=== PATIENT | female | born 2000 | race Caucasian/White ===

== ENCOUNTER 2022-07-01 03:22 | Emergency (ER) | payer SELFPAY ==
[2022-07-01 03:41] VITALS: BP 110/62; PULSE 89; RESP 16; TEMP 36.7; O2SAT 97; BMI 29.2
[2022-07-01 03:59] LABS: Appearance Urine Cloudy; Color Urine Yellow; Glucose Urine UA Negative (Negative); Leukocyte Esterase Urine Small (1+) (Negative); Nitrite Urine Positive (Negative); UMIC TRIGGER UACC YES; Urine Blood Negative (Negative); Urine Ketones Negative (Negative); Urine Protein Negative (Neg-Trace)
[2022-07-01 04:02] LABS: UPreg QC Valid YES; Urine Pregnancy NEGATIVE (NEGATIVE)
[2022-07-01 04:04] LABS: Bacteria Urine 4+ (None Seen); Hyaline Casts Urine 0-2 /LPF (0-2); RBC Urine 0-2 /HPF (0-2); UACC Culture Trigger YES; WBC Urine 21-50 /HPF (0-5)
--- NOTE | 2022-07-01 06:09 | ED_ITS ---
HPI - Female Genitourinary General Chief complaint: Urogenital-Female Stated complaint: Pain when urinating Time Seen by Provider: 07/01/22 06:01 Source: patient Mode of arrival: ambulatory Limitations: no limitations History of Present Illness HPI Narrative: 22-year-old female presents with urinary frequency, urgency, dysuria. Symptoms started 2 months ago. Symptoms are fairly constant. There is no nausea or vomiting. She denies any fevers or chills. Pain is in the lower pelvic area without any vaginal bleeding or discharge. The pain does not radiate. Patient did have a prescription for an antibiotic which she lost. She is here for a new prescription. Related Data Previous Rx's Medication Instructions Recorded cephalexin 500 mg capsule 500 mg PO BID #14 caps 07/01/22 phenazopyridine 200 mg tablet 200 mg PO TID PRN pain 6 doses #6 07/01/22 (Pyridium) tabs Allergies Allergy/AdvReac Type Severity Reaction Status Date / Time No Known Allergies Allergy Verified 07/01/22 03:49 Review of Systems Review of Systems: CONSTITUTIONAL: Denies weight loss, fever and chills. HEENT: Denies changes in vision and hearing. RESPIRATORY: Denies SOB and cough. CV: Denies palpitations no CP. GI: Denies abdominal pain, nausea, vomiting and diarrhea. : + dysuria and urinary frequency. MSK: Denies myalgia and joint pain. SKIN: Denies rash and pruritus. NEUROLOGICAL: Denies headache and syncope. PSYCHIATRIC: Denies recent changes in mood. Denies anxiety and depression. All other ROS are negative unless in HPI [facility] Social History Social History Advance Directives: No Physical Exam Vital Signs: Vital Signs: Last Vital Signs Temp 98.1 F 07/01/22 03:41 Pulse 89 07/01/22 03:41 Resp 16 07/01/22 03:41 BP 110/62 07/01/22 03:41 Pulse Ox 97 07/01/22 03:41 O2 Del Method 07/01/22 03:41 BMI result Body Mass Index 29.2 GEN: Well developed, no acute distress, alert, oriented HEENT: Normocephalic, atraumatic, normal external ears, nose appears normal, no oropharyngeal edema or exudates Eyes: Normal to appearance Neck: Supple, no lymphadenopathy Respiratory: Talks in complete sentences, no respiratory distress, clear to auscultation bilaterally Cardiovascular: Regular rate and rhythm, no murmurs rubs or gallops Abdomen: Soft, nontender, nondistended, no guarding, no rebound Back: No CVA tenderness Extremities: No clubbing cyanosis or edema Neurologic: No focal neurologic deficits, cranial nerves 2-12 intact, strength is 5/5 bilaterally, gait normal Skin: No rash Course Course Course Narrative: 22-year-old female presents with signs and symptoms consistent with urinary tract infection. She has no CVA tenderness to suggest ascending urinary tract infection/ pyelonephritis. Her abdomen is soft and nontender. Her urinalysis was consistent with UTI. Will start patient on antibiotics and Pyridium. She will follow-up with her primary care provider within the next few days for continued symptoms. She was started to drink appropriate levels of fluids to keep her system flushing. Her knee worsening or concerning symptoms she was instructed to come to the emergency department for re-evaluation. Medical Decision Making Medical Decision Making [facility] Narrative: 22-year-old female presents with signs and symptoms consistent with urinary tract infection. She has no CVA tenderness to suggest ascending urinary tract infection/ pyelonephritis. Her abdomen is soft and nontender. Her urinalysis was consistent with UTI. Will start patient on antibiotics and Pyridium. She will follow-up with her primary care provider within the next few days for continued symptoms. She was started to drink appropriate levels of fluids to keep her system flushing. Her knee worsening or concerning symptoms she was instructed to come to the emergency department for re-evaluation. Differential Diagnosis Differential Diagnoses: The differential diagnosis associated with the presentation includes ( UTI, cystitis, pyelonephritis, pelvic pain) acute UTI Admission/Observation Consideration of admission/observation: Escalation of care including admission/observation considered Lab Data [facility] Lab Attestation statement: I reviewed the patient's lab results. Labs: Lab Results 07/01/22 07/01/22 Range/Units 03:49 03:49 Urine Color Yellow Urine Appearance Cloudy Urine pH 6.0 (5.0-9.0) Ur Specific [place] 1.020 (1.005-1.025) Urine Protein Negative (Neg-Trace) mg/dL Urine Glucose (UA) Negative (Negative) mg/dL Urine Ketones Negative (Negative) mg/dL Urine Blood Negative (Negative) Urine Nitrite Positive H (Negative) Ur Leukocyte Esterase Small (1+) H (Negative) Urine RBC 0-2 (0-2) /HPF Urine WBC 21-50 H (0-5) /HPF Ur Squamous Epith Cells 6-10 (0-2) /HPF Urine Bacteria 4+ (None Seen) Hyaline Casts 0-2 (0-2) /LPF Urine Test NEGATIVE (NEGATIVE) Tests considered The following testing was considered but not selected: ultrasound, blood work Prescription Management I considered prescription management with: Pain Medication and Antibiotic Discharge Plan Discharge Clinical Impression: Urinary tract infection Patient Disposition: Home, Self-Care Instructions: Urinary Tract Infection in Women (ED) Prescriptions: New cephalexin 500 mg capsule 500 mg PO BID Qty: 14 0RF phenazopyridine [Pyridium] 200 mg tablet 200 mg PO TID PRN (Reason: pain) Qty: 6 0RF
[2022-07-01] MEDS: Phenazopyridine HCL 200 MG TABLET PO (06:16)
[2022-07-01] MEDS: cephALEXin 500 MG CAPSULE PO (06:16)
== END 2022-07-01 06:26 | disposition home or self-care (01) ==
PROVIDERS: Emergency Provider Emergency Medicine
DX: N39.0 Urinary tract infection, site not specified (principal); R30.0 Dysuria; Z79.899 Other long term (current) drug therapy
CPT/HCPCS: 81001; 81025; 87086; 87088; 87186; 99284

== ENCOUNTER 2022-07-06 15:53 | Inpatient (IN) | payer SELFPAY ==
--- NOTE | ~2022-07-06 | US_ITS ---
EXAMINATION: US RETROPERITONEAL LIMITED (RENAL ONLY) CLINICAL INFORMATION: UTI, concern for obstructive uropathy. COMPARISON: None TECHNIQUE: Real-time imaging of the kidneys. FINDINGS: RIGHT KIDNEY: 9.5 x 6.0 x 5.8 cm (SAG x AP x TRV). The kidney is normal in size, contour, and echogenicity. Renal cortical thickness is normal. No calculi or focal parenchymal lesions. Right renal pelviectasis without prashant hydronephrosis. LEFT KIDNEY: 10.9 x 6.0 x 5.9 cm (SAG x AP x TRV). The kidney is normal in size, contour, and echogenicity. Renal cortical thickness is normal. No calculi or focal parenchymal lesions. No hydronephrosis. US/US renal BI IMPRESSION: Right renal pelviectasis without prashant hydronephrosis. No nephrolithiasis identified.
[2022-07-06 16:33] VITALS: BP 111/68; PULSE 82; RESP 16; TEMP 36.3; O2SAT 100; BMI 29.2
--- NOTE | 2022-07-06 16:33 | ED_ITS ---
HPI - Recheck/Abnormal Lab/Rx General Chief Complaint: Urogenital-Female <TAMIKA Martinez Last Filed: 07/06/22 16:38> Stated Complaint: Called to return to ED <TAMIKA Martinez Last Filed: 07/06/22 16:38> Time Seen by Provider: 07/06/22 17:04 <TAMIKA Martinez Last Filed: 07/06/22 16:38> Source: patient <TAMIKA Mena Last Filed: 07/06/22 18:47> Mode of arrival: ambulatory <TAMIKA Mena Last Filed: 07/06/22 18:47> History of Present Illness HPI narrative: 22-year-old female with a past medical history recently diagnosed UTI started on Keflex in our ED on to 07/01/22 presenting to ED due to positive urine cultures growing Klebsiella pneumonia ESBL. Patient reports suprapubic abdominal discomfort, urinary frequency, dysuria, and white vaginal discharge which started today. Admits has not yet picked up antibiotics that were previously prescribed. Denies fever, chills, nausea, vomiting, flank pain, vaginal bleeding. Is sexually active with 1 male partner, denies concern for STI. <TAMIKA Mena Last Filed: 07/06/22 18:47> MD complaint: needs IV antibiotics <TAMIKA Mena Last Filed: 07/06/22 18:47> Related Data Home Medications: Home Medications Medication Instructions Recorded Confirmed No Known Home Meds 07/06/22 07/06/22 <TAMIKA Martinez Last Filed: 07/06/22 16:38> Allergies/Adverse Reactions: Allergies Allergy/AdvReac Type Severity Reaction Status Date / Time No Known Allergies Allergy Verified 07/06/22 16:36 <TAMIKA Martinez Last Filed: 07/06/22 16:38> Review of Systems Review of Systems: Constitutional: No Fever, No Chills, No Fatigue, No Malaise ENT/Mouth: No Ear Pain, No Hoarseness, No sore throat, No Rhinorrhea, No Swallowing Difficulty Eyes: No Eye Pain, No Swelling, No Redness, No Vision Changes Cardiovascular: No Chest Pain, No SOB, No Edema, No Palpitations Respiratory: No Cough, No Sputum, No Dyspnea Gastrointestinal: No Nausea, No Vomiting, No Diarrhea, No Constipation, + Abdominal pain Genitourinary: +Dysuria, + Urinary Frequency, No Hematuria, No Urinary Incontinence/retention, No Flank Pain, No Urinary Flow Changes, +vaginal d/c Musculoskeletal: No joint pain, No Myalgias, No Joint Swelling Skin: No Skin Lesions, No rash Neuro: No Weakness, No Headache <TAMIKA Mena - Last Filed: 07/06/22 18:47> Yes all other systems are reviewed and are negative <TAMIKA Mena - Last Filed: 07/06/22 18:47> Constitutional: Constitutional: Reports as per HPI <TAMIKA Mena - Last Filed: 07/06/22 18:47> [facility] Past Medical History Attestation statement: The following information was validated with the patient. <TAMIKA Mena - Last Filed: 07/06/22 18:47> Social History Social History: Social History Advance Directives: No Advance Directives Information Provided: No <TAMIKA Martinez - Last Filed: 07/06/22 16:38> Physical Exam Vital Signs: Vital Signs: Last Vital Signs Temp 97.4 F 07/06/22 16:33 Pulse 82 07/06/22 16:33 Resp 16 07/06/22 16:33 BP 111/68 07/06/22 16:33 Pulse Ox 100 07/06/22 16:33 O2 Del Method 07/06/22 16:33 BMI result Body Mass Index 29.2 <TAMIKA Martinez - Last Filed: 07/06/22 16:38> Vital Signs: Last Vital Signs Temp 97.4 F 07/06/22 16:33 Pulse 82 07/06/22 16:33 Resp 16 07/06/22 16:33 BP 111/68 07/06/22 16:33 Pulse Ox 100 07/06/22 16:33 O2 Del Method 07/06/22 16:33 BMI result Body Mass Index 29.2 <TAMIKA Mena - Last Filed: 07/06/22 18:47> Const: General: cooperative, healthy appearing and no acute distress <TAMIKA Mena - Last Filed: 07/06/22 18:47> Orientation/consciousness: patient oriented x3 <TAMIKA Mena - Last Filed: 07/06/22 18:47> Limitations: no limitations <Nathalie Spaulding PA - Last Filed: 07/06/22 18:47> HEENT: Head: Yes normal to inspection and Yes atraumatic <Nathalie Spaulding PA - Last Filed: 07/06/22 18:47> Ears: hearing grossly normal bilaterally <Nathalie Spaulding PA - Last Filed: 07/06/22 18:47> General nose exam: Normal external nose present <Nathalie Spaulding PA - Last Filed: 07/06/22 18:47> Face and sinus: Yes normal facial exam <Nathalie Spaulding PA - Last Filed: 07/06/22 18:47> Eyes: General: appearance normal, both eyes and all related structures <Nathalie Spaulding PA - Last Filed: 07/06/22 18:47> EOM: EOMs intact bilaterally <Nathalie Spaulding PA - Last Filed: 07/06/22 18:47> Neck: Neck: Yes normal visual inspection and Yes no meningeal signs <Nathalie Spaulding PA - Last Filed: 07/06/22 18:47> Resp: Effort & Inspection: normal respiratory effort and no respiratory distress <Nathalie Spaulding PA - Last Filed: 07/06/22 18:47> Auscultation: clear to auscultation bilaterally <Nathalie Spaulding PA - Last Filed: 07/06/22 18:47> Cardio: Rate: regular rate <Nathalie Spaulding PA - Last Filed: 07/06/22 18:47> Heart sounds: S1 normal heart sound present and S2 normal heart sound present <Nathalie Spaulding PA - Last Filed: 07/06/22 18:47> GI: Inspection: Yes normal to inspection <Nathalie Spaulding PA - Last Filed: 07/06/22 18:47> Palpation (GI): Soft to palpation, Tenderness to palpation present (GI) suprapubicly, no guarding and not rigid <Nathalie Spaulding PA - Last Filed: 07/06/22 18:47> : General: Yes no CVA tenderness <Nathalie Spaulding PA - Last Filed: 07/06/22 18:47> Speculum Exam - Vagina: abnormal vaginal discharge white and clear; not malodorous and No vaginal bleeding <Nathalie Spaulding PA - Last Filed: 07/06/22 18:47> Bimanual exam- vagina & uterus: normal bimanual exam and no cervical motion tenderness <Nathalie Spaulding PA - Last Filed: 07/06/22 18:47> Bimanual Exam- Adnexa, other: normal adnexae and no tenderness <Nathalie Spaulding PA - Last Filed: 07/06/22 18:47> OB/external & speculum: No vaginal bleeding <Nathalie Spaulding PA - Last Filed: 07/06/22 18:47> Back/Spine/Pelvis: Back: no CVA tenderness <Nathalie Spaulding PA - Last Filed: 07/06/22 18:47> Skin: Rashes: no rashes <Nathalie Spaulding PA - Last Filed: 07/06/22 18:47> Wounds: no wounds <Nathalie Spaulding PA - Last Filed: 07/06/22 18:47> Neuro: General: patient oriented x3, tone normal and no meningeal signs <Nathalie Spaulding PA - Last Filed: 07/06/22 18:47> Gait exam (Neuro): Normal gait present <Nathalie Spaulding PA - Last Filed: 07/06/22 18:47> Extrem: General: Yes normal to inspection <Nathalie Spaulding PA - Last Filed: 07/06/22 18:47> Course Course Course Narrative: RME-16:35pm 22yoF presenting to the ED after she was called back for abnormal labs of urine culture grew Klebsiella pneumoniae ESBL, susceptible only to ertapenem and gentamicin. Pt presenting with complaints of urinary frequency, urgency, dysuria that started approximately 2 months ago and has been constant. She reports associated chills and suprapubic abdominal tenderness. She reports she would like to be tested for STDs and would like the blood test due to she has not got her period. She denies any measured fevers, nausea or vomiting or abnormal discharge or any other symptoms complaints or concerns at this time. Plan: Will obtain labs including blood cultures, UA, blood cultures, gonorrhea chlamydia urine. Patient sent back to the waiting room to be evaluated in the ED. <TAMIKA Martinez - Last Filed: 07/06/22 16:38> Medications Administered Discontinued Medications Generic Name Dose Route Start Last Admin Trade Name Freq PRN Reason Stop Dose Admin Ertapenem 1 gm/ Sodium 50 mls @ 100 mls/hr 07/06/22 17:13 07/06/22 18:13 Chloride IV 07/06/22 17:42 100 mls/hr ONCE ONE Administration Sodium Chloride 500 mls @ 999 mls/hr 07/06/22 17:15 07/06/22 18:13 Ns IV 07/06/22 17:45 999 mls/hr .Q31M JOSE D Administration <TAMIKA Martinez - Last Filed: 07/06/22 16:38> Medications Administered Discontinued Medications Generic Name Dose Route Start Last Admin Trade Name Freq PRN Reason Stop Dose Admin Ertapenem 1 gm/ Sodium 50 mls @ 100 mls/hr 07/06/22 17:13 07/06/22 18:13 Chloride IV 07/06/22 17:42 100 mls/hr ONCE ONE Administration Sodium Chloride 500 mls @ 999 mls/hr 07/06/22 17:15 07/06/22 18:13 Ns IV 07/06/22 17:45 999 mls/hr .Q31M JOSE D Administration <TAMIKA Mena - Last Filed: 07/06/22 18:47> Medical Decision Making Medical Decision Making MDM Narrative: 22-year-old female with a past medical history recently diagnosed UTI started on Keflex in our ED on to 07/01/22 presenting to ED due to positive urine cultures growing Klebsiella pneumonia ESBL. On exam vital signs stable, NAD, nontoxic appearing, abdomen soft with mild suprapubic tenderness to palpation, no CVA tenderness, on pelvic exam white/clear discharge noted, no CMT or adnexal tenderness. Concern for UTI vs STI. Lower suspicion for pyelonephritis/renal stone or ovarian torsion/TOA Plan: Labs, UA, STI testing, blood cultures, IV antibiotics, admission Please refer to course for remaining clinical decision making, interpretation of labs/imaging results, and discussions with consultants and/or family members. <TAMIKA Mena - Last Filed: 07/06/22 18:47> Differential Diagnosis Differential Diagnoses: The differential diagnosis associated with the presentation includes <TAMIKA Mena - Last Filed: 07/06/22 18:47> As above <TAMIKA Mena - Last Filed: 07/06/22 18:47> Consult Healthcare Provider Management of the patient was discussed with: Hospitalist <TAMIKA Mena - Last Filed: 07/06/22 18:47> Lab Data MDM Lab Attestation statement: I reviewed the patient's lab results. <TAMIKA Mena Last Filed: 07/06/22 18:47> Labs: Lab Results 07/06/22 07/06/22 Range/Units 18:11 18:11 Urine Color Yellow Urine Appearance Cloudy Urine pH 6.5 (5.0-9.0) Ur Specific [place] 1.020 (1.005-1.025) Urine Protein Trace (Neg-Trace) mg/dL Urine Glucose (UA) Negative (Negative) mg/dL Urine Ketones Negative (Negative) mg/dL Urine Blood Trace H (Negative) Urine Nitrite Positive H (Negative) Ur Leukocyte Esterase Large (3+) H (Negative) COVID-19 ([facility]ISES) Negative (Negative) COVID-19 Clin Com See Note <TAMIKA Martinez - Last Filed: 07/06/22 16:38> Lab Results 07/06/22 07/06/22 Range/Units 18:11 18:11 Urine Color Yellow Urine Appearance Cloudy Urine pH 6.5 (5.0-9.0) Ur Specific [place] 1.020 (1.005-1.025) Urine Protein Trace (Neg-Trace) mg/dL Urine Glucose (UA) Negative (Negative) mg/dL Urine Ketones Negative (Negative) mg/dL Urine Blood Trace H (Negative) Urine Nitrite Positive H (Negative) Ur Leukocyte Esterase Large (3+) H (Negative) COVID-19 (MOISES) Negative (Negative) COVID-19 Clin Com See Note <TAMIKA Mena Last Filed: 07/06/22 18:47> External Record Review External record reviewed: Outpatient record and Prior outpatient labs <TAMIKA Mena - Last Filed: 07/06/22 18:47> Prescription Management I considered prescription management with: Antibiotic <TAMIKA Mena - Last Filed: 07/06/22 18:47> Discharge Plan Discharge Clinical Impression: Urinary tract infection due to ESBL Klebsiella <TAMIKA Martinez - Last Filed: 07/06/22 16:38> Patient Disposition: Admitted As Inpatient <TAMIKA Martinez - Last Filed: 07/06/22 16:38>
--- NOTE | 2022-07-06 17:57 | P.HPHOSP_ITS ---
History of Present Illness Date of Service: 07/06/22 Chief Complaint: resistant UTI 22-year-old female recently seen in ED on 04/30 and prescribed Keflex which she had not taken. She was called in to ED because of postive culture for ESBL Klebsiella pneumonia ESBL.? Patient presently reports suprapubic pain/disc omfort, urinary frequency, dysuria, and white vaginal discharge that she has noted today. Has no fever, no flank pain. She no fever. Ertapenem is prescribed in ED Review of Systems Review of Systems: suprapubic tederness dyuria, frequent urination, no fever, no flank tenderness Yes all other systems are reviewed and are negative PMFSH Social History Household Members: Family Household Members Other:: 5 Housing: House Do you presently have visiting nurse or other home services: No Patient Tobacco Use Status: Former Tobacco user Quit Date: 06/03/2022 Smoked in Last 30 Days: Yes e-Cigarette/Vaping Use: Former Use Patient Interested in Nicotine Replacement: No Patient Given Instructions on How to Stop Smoking: No Second Hand Smoke Exposure: No Use of substances other than those prescribed or required for medical reasons: No Currently Displaying Signs/Symptoms of Drug Intoxication Withdrawal: No Any prior treatment program specific to substance use: No Have you been hit, kicked, punched, or otherwise hurt by someone within the past year? If so, by whom?: No Do you feel safe in your current relationship?: Yes Is there a partner from a previous relationship who is making you feel unsafe now?: No Are you made to feel afraid or neglected: No Advance Directives: No Advance Directives Information Provided: No Do you have thoughts of harming others: None Do you have a plan to hurt others: No Plan Recently lost weight without trying: No Eating poorly because of decreased appetite: No Nutrition Risks: No Nutritional Risk Patient : No : No Poor oral hygiene: No Meds Allergies Allergy/AdvReac Type Severity Reaction Status Date / Time No Known Allergies Allergy Verified 07/06/22 16:36 Active Medications: Current Medications Pharmacy Consult (Consult Rx Perform Med Rec) 1 each MISCELLANE ONCE STA Stop: 07/06/22 17:13 Home Medications Medication Instructions Recorded Confirmed Last Taken Type No Known Home Meds 07/06/22 07/06/22 Unknown History Physical Exam Vital Signs and Narrative: Vital Signs: Last Vital Signs Temp 97.4 F 07/06/22 16:33 Pulse 82 07/06/22 16:33 Resp 16 07/06/22 16:33 BP 111/68 07/06/22 16:33 Pulse Ox 100 07/06/22 16:33 O2 Del Method 07/06/22 16:33 BMI result Body Mass Index 29.2 Const: Other: General: AO X 3, no acute distress Resp: CTA bilateral CVS: S1,S2,RRR GI: +BS, NT, no distention, no flank tenderness, pelvis exam deffered to ed provider has some suprapubic tenderness Skin: No rash Neuro: motor grossly intact Psych: appropriate affect Results Labs 07/06/22 18:53 07/06/22 18:52 Assessment and Plan (1) Urinary tract infection due to ESBL Klebsiella: Status: Acute Plan 22/F with ESBL UTI at risk for sepsis if not properly treated, vaginal discharge 1/ESBL klebiela UTI--continue Ertapenem, will check with ID about other treatment option. check test, routine labs (cbc, bmp) 2/Vaginal discharge--pelvic exam wth swab to be done by ED provider Time Spent With Patient Time: Total time managing care of this patient today ____ minutes. Quality Stroke Does the patient have a stroke diagnosis?: No VTE Prior VTE?: No VTE Risk Level:: Medical - low VTE Device Contraindication: Treatment Not Indicated VTE Drug Contraindication: Treatment Not Indicated
[2022-07-06] MEDS: 0.9 % Sodium Chloride 500 ML 999 ML IV (18:13)
[2022-07-06] MEDS: Ertapenem Sodium 1 GM in 0.9 % Sodium Chloride 50 ML IV (18:13)
--- NOTE | 2022-07-06 18:14 | PHA.MEDREC ---
MED REC COMPLETE, SPOKE WITH PATIENT NO MEDICATIONS Pharmacy Consult ? Medication Reconciliation Pharmacy has completed the medication reconciliation.
[2022-07-06 18:35] LABS: Appearance Urine Cloudy; Color Urine Yellow; Glucose Urine UA Negative (Negative); Leukocyte Esterase Urine Large (3+) (Negative); Nitrite Urine Positive (Negative); PH 6.5 (5.0-9.0); UMIC TRIGGER UACC YES; Urine Blood Trace (Negative); Urine Ketones Negative (Negative); Urine Protein Trace mg/dL (Neg-Trace)
[2022-07-06 18:38] LABS: COVID-19 Test Negative (Negative); IDNOW Serial# 16C4AD1C
[2022-07-06 18:40] LABS: Bacteria Urine 4+ (None Seen); Hyaline Casts Urine 0-2 /LPF (0-2); RBC Urine 0-2 /HPF (0-2); Squamous Epithelial Cell Urine 0-2 /HPF (0-2); UACC Culture Trigger YES; WBC Urine >50 /HPF (0-5)
[2022-07-06 18:59] LABS: MANUAL DIFF FLAG NO
[2022-07-06 19:04] LABS: Basophils Percent Auto 0.3 % (0-2); Eosinophils Absolute Auto 0.2 X10*3/uL (0.0-0.4); Eosinophils Percent Auto 3.1 % (0-4); Hematocrit 33.6 % (37.0-47.0); Hemoglobin 10.5 g/dl (12.0-16.0); Imm Gran Abs Auto 0.01 X10*3/uL (0.00-0.03); Imm Gran Pct Auto 0.2 % (0.0-0.4); Lymphocytes Absolute Auto 1.7 X10*3/uL (1.2-4.9); Lymphocytes Percent Auto 27.5 % (20-40); Mean Corpuscular HGB Conc 31.3 g/dl (31.0-35.0); Mean Corpuscular Hemoglobin 23.6 pg (27.0-33.0); Mean Corpuscular Volume 75.5 fL (80.0-98.0); Mean Platelet Volume 10.5 fL (9.4-12.3); Monocytes Absolute Auto 0.5 X10*3/uL (0.1-1.2); Monocytes Percent Auto 8.2 % (2-11); Neutrophils Absolute Auto 3.7 x10*3/uL (2.0-8.3); Neutrophils Percent Auto 60.7 % (45-73); Platelet Count 401 X10*3/uL (160-400); Red Blood Count 4.45 X10*6/uL (4.20-5.50); Red Cell Distribution Width 15.2 % (11.0-16.0); White Blood Count 6.1 X10*3/uL (4.8-10.8)
[2022-07-06 19:18] LABS: Alanine Aminotransferase 20 U/L (0-31); Albumin Level 4.5 g/dL (3.5-5.0); Alkaline Phosphatase 64 U/L (39-117); Anion Gap 13 (12-20); Aspartate Amino Transferase 19 U/L (5-31); Bilirubin Total 0.5 mg/dL (0.0-1.0); Blood Urea Nitrogen 11 mg/dL (9-16); Calcium 9.1 mg/dL (8.4-10.2); Carbon Dioxide 22 mmol/L (22-29); Chloride 107 mmol/L (96-108); Creatinine Clr Calc Pharmacy 120.7; Estimated Glomerular Filt Rate > 60; Glucose Random 87 mg/dL (60-115); Magnesium 1.9 mg/dL (1.6-2.6); Sodium 138 mmol/L (135-145); Total Protein 7.3 g/dL (6.5-8.0)
[2022-07-06 19:22] LABS: INTERNATIONAL NORM RATIO 1.2 (0.9-1.1)
[2022-07-06 19:30] LABS: HCG Quantitative < 2 mIU/mL
[2022-07-06] MEDS: Dextrose 5 % and 0.45 % NaCl 1,000 ML 100 ML IVCONT (19:36)
[2022-07-06 19:38] VITALS: BP 114/73; PULSE 77; RESP 20; O2SAT 99
--- NOTE | 2022-07-06 22:02 | PC.NURSE ---
report given to ISAURA Forte
[2022-07-06 22:44] VITALS: BMI 29.3
[2022-07-07 01:35] VITALS: BP 117/55; PULSE 76; RESP 18; TEMP 36.4; O2SAT 99
[2022-07-07 02:51] LABS: CT PCR NOT DETECTED (Not Detect.); NG PCR NOT DETECTED (Not Detect.)
[2022-07-07 03:45] VITALS: BP 119/69; PULSE 75; RESP 18; TEMP 36.2; O2SAT 98
[2022-07-07] MEDS: Dextrose 5 % and 0.45 % NaCl 1,000 ML 100 ML IVCONT ×2 (05:31→16:47)
[2022-07-07 08:00] VITALS: BP 110/55; PULSE 73; RESP 18; TEMP 36.5; O2SAT 95
--- NOTE | 2022-07-07 08:17 | P.PNIM_ITS ---
Subjective Subjective Date of Service: 07/07/22 Interval History: f/u on resistant uti interval history: feels bebetter, no pain of any kind Review of Systems no dysuria, no flank pain, no vag dc Physical Exam Vital Signs: Vital Signs: Last Vital Signs Temp 97.2 F 07/07/22 03:45 Pulse 75 07/07/22 03:45 Resp 18 07/07/22 03:45 BP 119/69 07/07/22 03:45 Pulse Ox 98 07/07/22 03:45 O2 Del Method 07/07/22 03:45 BMI result Body Mass Index 29.3 Const: Other: General: AO X 3, no acute distress Resp: CTA bilateral CVS: S1,S2,RRR GI: +BS, NT, Skin: No rash Neuro: motor grossly intact Psych: appropriate affect Objective Data Active Medications Acetaminophen (Acetaminophen 325 Mg Tablet) 650 mg PO Q6H PRN PRN Reason: Pain, Mild (Pain Scale 1-3) Dextrose/Sodium Chloride (D51/2ns) 1,000 mls @ 100 mls/hr IVCONT .Q10H [facility] Last Admin: 07/07/22 05:31 Dose: 100 mls/hr Documented By: HUONG Melatonin (Melatonin 3 Mg Tablet) 6 mg PO BEDTIME PRN PRN Reason: Insomnia Ondansetron HCl (Ondansetron Hcl 4 Mg/2 Ml Vial) 4 mg IVPUSH Q8H PRN PRN Reason: Nausea and Vomiting Sodium Chloride (0.9 % Sodium Chloride Flush 3 Ml Syringe) 3 ml IVFLUSH QSHIFT [facility] Last Admin: 07/06/22 22:44 Dose: Not Given Documented By: HUONG Non-Admin Reason: IV Running Labs 07/06/22 18:53 07/06/22 18:52 Labs: Laboratory Results - last 24 hr 07/06/22 07/06/22 07/06/22 18:11 18:11 18:52 MCV MCH MCHC RDW Plt Count MPV Immature Gran % (Auto) Neut % (Auto) Lymph % (Auto) [place] % (Auto) Eos % (Auto) Baso % (Auto) Lymph # (Auto) [place] # (Auto) Eos # (Auto) Baso # (Auto) Abs Immat Gran (auto) Absolute Neuts (auto) Absolute Nucleated RBC Nucleated RBC % (auto) PT INR Anion Gap 13 Estim Creat Clear Calc 120.7 Estimated GFR > 60 Random Glucose 87 Calcium 9.1 Magnesium 1.9 Total Bilirubin 0.5 AST 19 ALT 20 Alkaline Phosphatase 64 Total Protein 7.3 Albumin 4.5 Beta HCG, Quant Urine Color Yellow Urine Appearance Cloudy Urine pH 6.5 Ur Specific [place] 1.020 Urine Protein Trace Urine Glucose (UA) Negative Urine Ketones Negative Urine Blood Trace H Urine Nitrite Positive H Ur Leukocyte Esterase Large (3+) H Urine RBC 0-2 Urine WBC >50 H Ur Squamous Epith Cells 0-2 Urine Bacteria 4+ Hyaline Casts 0-2 Chlam trachomat DNA PCR COVID-19 ([facility]) Negative COVID-19 Clin Com See Note N.gonorrhoeae DNA (PCR) 07/06/22 07/06/22 07/06/22 18:52 18:52 18:53 MCV 75.5 L MCH 23.6 L MCHC 31.3 RDW 15.2 Plt Count 401 H MPV 10.5 Immature Gran % (Auto) 0.2 Neut % (Auto) 60.7 Lymph % (Auto) 27.5 [place] % (Auto) 8.2 Eos % (Auto) 3.1 Baso % (Auto) 0.3 Lymph # (Auto) 1.7 [place] # (Auto) 0.5 Eos # (Auto) 0.2 Baso # (Auto) 0.0 Abs Immat Gran (auto) 0.01 Absolute Neuts (auto) 3.7 Absolute Nucleated RBC 0.000 Nucleated RBC % (auto) 0.0 PT INR Anion Gap Estim Creat Clear Calc Estimated GFR Random Glucose Calcium Magnesium Total Bilirubin AST ALT Alkaline Phosphatase Total Protein Albumin Beta HCG, Quant < 2 Urine Color Urine Appearance Urine pH Ur Specific [place] Urine Protein Urine Glucose (UA) Urine Ketones Urine Blood Urine Nitrite Ur Leukocyte Esterase Urine RBC Urine WBC Ur Squamous Epith Cells Urine Bacteria Hyaline Casts Chlam trachomat DNA PCR NOT DETECTED COVID-19 ([facility]) COVID-19 Clin Com N.gonorrhoeae DNA (PCR) NOT DETECTED 07/06/22 18:53 MCV MCH MCHC RDW Plt Count MPV Immature Gran % (Auto) Neut % (Auto) Lymph % (Auto) [place] % (Auto) Eos % (Auto) Baso % (Auto) Lymph # (Auto) [place] # (Auto) Eos # (Auto) Baso # (Auto) Abs Immat Gran (auto) Absolute Neuts (auto) Absolute Nucleated RBC Nucleated RBC % (auto) PT 14.0 H INR 1.2 H Anion Gap Estim Creat Clear Calc Estimated GFR Random Glucose Calcium Magnesium Total Bilirubin AST ALT Alkaline Phosphatase Total Protein Albumin Beta HCG, Quant Urine Color Urine Appearance Urine pH Ur Specific [place] Urine Protein Urine Glucose (UA) Urine Ketones Urine Blood Urine Nitrite Ur Leukocyte Esterase Urine RBC Urine WBC Ur Squamous Epith Cells Urine Bacteria Hyaline Casts Chlam trachomat DNA PCR COVID-19 ([facility]) COVID-19 Clin Com N.gonorrhoeae DNA (PCR) Microbiology Microbiology Results: Microbiology 07/06/22 18:52 Trichomonas Preparation - Final Vaginal Assessment and Plan (1) Urinary tract infection due to ESBL Klebsiella: Status: Acute Plan 22/F with ESBL UTI at risk for sepsis if not properly treated, vaginal discharge 1/ESBL klebiela UTI--neg , Meropenem, ID consult 2/Vaginal discharge--pelvic examby ED provider suggest of yeast, GN negative--Difluan 150 x 1 Time Spent With Patient Time: Total time managing care of this patient today ____ minutes. Quality Stroke Does the patient have a stroke diagnosis?: No VTE Prior VTE?: No VTE Risk Level:: Medical - low VTE Device Contraindication: Treatment Not Indicated VTE Drug Contraindication: Treatment Not Indicated
[2022-07-07] MEDS: Fluconazole 150 MG TABLET PO (09:41)
[2022-07-07] MEDS: 0.9 % Sodium Chloride Flush 3 ML SYRINGE IVFLUSH (09:57)
[2022-07-07 12:27] LABS: BV Int Neg Control Negative (Negative); BV Int Pos Control Positive (Positive)
[2022-07-07 15:33] VITALS: BP 112/59; PULSE 70; RESP 18; TEMP 37.8; O2SAT 98
[2022-07-07 20:00] VITALS: BP 94/47; PULSE 61; RESP 17; TEMP 37.1; O2SAT 98
[2022-07-07] MEDS: 0.9 % Sodium Chloride 1,000 ML 999 ML IV (20:42)
[2022-07-07 21:54] VITALS: BP 126/64; PULSE 72
[2022-07-08 02:47] VITALS: BP 109/56; PULSE 64; RESP 18; TEMP 36.6; O2SAT 98
[2022-07-08] MEDS: Dextrose 5 % and 0.45 % NaCl 1,000 ML 100 ML IVCONT ×2 (03:12→11:27)
[2022-07-08 08:00] VITALS: BP 113/55; PULSE 79; RESP 17; TEMP 36.8; O2SAT 99
--- NOTE | 2022-07-08 09:01 | MHC.CM.PN ---
PT REPORTS SHE LIVES WITH HER FAMILY AND IS INDEPENDENT WITH CARE SHE HAS NO SERVICES AND NO DME PT ALSO HAS NO HEALTH INSURANCE AND NO PCP SHE SAYS SHE HAS ONLY BEEN HERE FOR ABOUT A WEEK A REFERRAL WAS SENT TO [facility] – [place] FS FOR ASSISTANCE WITH HEALTH INSURANCE PT ALSO EDUCATED ON HOW TO OBTAIN A PCP ONCE ACTIVE SHE DECLINES TO COMPLETE A HCP DCP: HOME NO SERVICES VIA FAMILY TRANSPORT
--- NOTE | 2022-07-08 10:15 | PM.DS ---
DS: Providers Provider Date of Service: 07/08/22 Date of admission: 07/06/22 18:18 Primary care physician: None Physician Consults: 07/06/22 17:14 Consult to Infectious Diseases Routine Consulting Provider: Marnie Packer Reason for consultation: ESBL Has provider been notified: No 07/07/22 08:15 Consult to Infectious Diseases Routine Consulting Provider: Marnie Packer Reason for consultation: ESBL UTI DS: Diagnosis Discharge Diagnosis (1) Urinary tract infection due to ESBL Klebsiella: Status: Acute DS: Summary Hospital Course Hospital Course: Chief Complaint: resistant UTI 22-year-old female recently seen in ED on 04/30 and prescribed? Keflex which she had not taken. She was called in to ED because of postive culture for ESBL? Klebsiella pneumonia ESBL.? Patient presently reports suprapubic pain/discomfort, urinary frequency, dysuria, and white vaginal discharge that she has noted today.? Has no fever, no flank pain. She no fever. Ertapenem is prescribed in ED Hospital course: She presented with simple UTI but initial culture showed resistant ESBL Klebsiela and repeat culture now E. coli that is sennstive. She presently has no symptoms, never had fever or chills, WBC normal no flank tenderness. At this point has been treated for 3 days for ESBL and will treat for another 7 days for present E. col, compliance stressed Time Spent with Patient Time attestation: Total time managing care of this patient today ____ minutes. Discharge coordination time: Greater than 30 minutes Quality: Safe Use of Opioids Does Pt have an Active Cancer Diagnosis on the Problem List?: No Quality: Stroke Does the patient have a stroke diagnosis?: No Physical Exam Vital Signs: Vital Signs: Last Vital Signs Temp 98.3 F 07/08/22 08:00 Pulse 79 07/08/22 08:00 Resp 17 07/08/22 08:00 BP 113/55 L 07/08/22 08:00 Pulse Ox 99 07/08/22 08:00 O2 Del Method 07/08/22 08:00 BMI result Body Mass Index 29.3 DS: Data Data Completed and Pending Labs on day of discharge: Laboratory Results - last 24 hr 07/06/22 18:52 Gema species DNA Positive A Gardnerella DNA Probe Negative Trichomonas DNA Probe Negative Preliminary micro results at discharge 07/06/22 18:11 Blood Culture - Preliminary Blood - Venous No growth after 24 hours. 07/06/22 18:11 Blood Culture - Preliminary Blood - Venous No growth after 24 hours. Discharge Plan Discharge Anticipated Discharge Date/Time: 07/08/22 10:02 Patient Disposition: Home, Self-Care Discharge Diagnosis: UTI due to E.coli Referrals: Physician,None [Primary Care Provider] - 1 Week Discharge Medications: New cefuroxime axetil 500 mg tablet 500 mg PO BID 7 Days Qty: 14 0RF Diet: Advance to usual diet Activity on Discharge: As tolerated Stand Alone Forms: Patient Portal Discharge page Care Plan Goals: resolution of uti Health Concerns: uti Plan of Treatment: Take Ceftin 500 mg twice daily for 7 days, finish taking all the pills, follow up with your Dcotor in a week Assessment: heidi above
== END 2022-07-08 16:00 | disposition home or self-care (01) | DRG 690 ==
LOC: HO.ED 18:00 → HO.EDOVER 18:34 → HO.S3 19:30
PROVIDERS: Physician Assistant; Physician Assistant Medical; Admitting Provider Internal Medicine; Emergency Provider Emergency Medicine; Visit Provider Internal Medicine
DX: N39.0 Urinary tract infection, site not specified (principal); Z16.12 Extended spectrum beta lactamase (ESBL) resistance; B96.20 Unspecified Escherichia coli [E. coli] as the cause of diseases classified elsewhere; B37.31 Acute candidiasis of vulva and vagina; Z91.14 Patient's other noncompliance with medication regimen; Z87.891 Personal history of nicotine dependence
CPT/HCPCS: 0353U; 36415; 76775; 80053; 81001; 83735; 84702; 85025; 85610; 87040; 87086; 87088; 87186; 87480; 87510; 87635; 87660; 99283; J1335; J2185